=== PATIENT | male | born 1960 | race Caucasian/White ===

== ENCOUNTER 2017-11-19 17:52 | Emergency (ER) | payer OTHER ==
[~2017-11-19] VITALS: Ht 175.3 cm; Wt 86.2 kg
[~2017-11-19 17:52] MED LIST: CEPH500C PO; HYDR-3454 PO
[2017-11-19] MEDS ORDERED: NS IV 1000 ML 1,000 ML IV ONE (18:05)
--- NOTE | 2017-11-19 18:12 | ED GU-Male ---
General Stated Complaint: PAIN IN BACK AND TESTICLES Source: patient, spouse Exam Limitations: no limitations History of Present Illness Date Seen by Provider: Nov 19, 2017 Time Seen by Provider: 18:07 Initial Comments Patient presents to ER with his spouse by private conveyance with a chief complaint of for one month now he's had progressively worsening pain starts in his left back around his kidneys radiates down to his left hip and left testicle. He does not have painful urination, discharge nor has he seen hematuria. He has not taken anything for the pain. He went to urgent care [facility] get some relief and I gave him IM Toradol about 20 minutes prior to arrival which has brought his pain down from an 8 to a 7. He has no history of kidney stones. He said they did a urinalysis and showed red blood cells in the urine. She says this pain is intermittent and does not come on every day. When it does come on fairly severe. He denies any history of trauma. He says his been drinking a lot of water and cranberry juice and says that he will urinate quite a bit and then need to go back to the bathroom and urinate again. He does not feel like his heart emptying his bladder but he is definitely having frequency area Allergies and Home Medications Allergies Coded Allergies: No Known Drug Allergies (Unverified , 12/03/12) Home Medications Cephalexin Monohydrate 500 Mg Capsule, 1 EACH PO TID for 7 Days, Ref 0 (Reported ) Hydrocodone Bit/Acetaminophen 1 Each Tablet, 1-2 EACH PO Q4H, #30 Ref 0 ( Reported) Oxycodone HCl/Acetaminophen 1 Each Tablet, 1-2 EACH PO Q4H PRN for BREAKTHROUGH PAIN, #20 Ref 0 Prescribed by: GILBERTO SZYMANSKI on 11/19/17 129 Constitutional: No chills, No diaphoresis, No fever, No malaise EENTM: no symptoms reported Respiratory: No cough, No short of breath Cardiovascular: No chest pain, No palpitations, No syncope Gastrointestinal: see HPI, abdominal pain, No constipation, No diarrhea, nausea , No vomiting Genitourinary: denies burning, denies discharge, denies dysuria, frequency, flank pain, denies hematuria, denies incontinence, pain, urgency Past Rrcvmzp-Cdkhaf-Ulipzo Hx Patient Social History Alcohol Use: Occasionally Uses Alcohol Beverage of Choice: Beer, Scotch Recreational Drug Use: No Smoking Status: Current Everyday Smoker Type Used: Cigarettes (0.25) Reproductive System Hx Reproductive Disorders: No Physical Exam Vital Signs Vital Sign - Last 12Hours 11/19/17 18:07 Temp 98.0 Pulse 63 Resp 17 B/P (MAP) 170/110 (130) Pulse Ox 96 O2 Delivery Room Air Capillary Refill : General Appearance: WD/WN, mild distress HEENT: PERRL/EOMI, pharynx normal Neck: non-tender, supple, normal inspection Cardiovascular: regular rate, rhythm, no edema Respiratory: normal breath sounds, no respiratory distress, no accessory muscle use Gastrointestinal: normal bowel sounds, soft, no organomegaly, No distended, No guarding, tenderness (RLQ) Back: normal inspection, no vertebral tenderness, CVA tenderness (L) Extremities: no pedal edema, normal capillary refill Neurologic/Psychiatric: alert, normal mood/affect, oriented x 3 Skin: normal color, warm/dry Progress/Results/Core Measures Suspected Sepsis SIRS Temperature: Pulse: Respiratory Rate: Laboratory Tests 11/19/17 18:00: White Blood Count 8.3 Blood Pressure / Mean: Laboratory Tests 11/19/17 18:00: Creatinine 1.08, Platelet Count 266, Total Bilirubin 0.4 Results/Orders Lab Results Laboratory Tests Test 11/19/17 18:00 11/19/17 18:16 Range/Units White Blood Count 8.3 4.3-11.0 10^3/uL Red Blood Count 4.83 4.35-5.85 10^6/uL Hemoglobin 15.1 13.3-17.7 G/DL Hematocrit 43 40-54 % Mean Corpuscular Volume 89 80-99 FL Mean Corpuscular Hemoglobin 31 25-34 PG Mean Corpuscular Hemoglobin Concent 35 32-36 G/DL Red Cell Distribution Width 12.8 10.0-14.5 % Platelet Count 266 130-400 10^3/uL Mean Platelet Volume 10.0 7.4-10.4 FL Neutrophils (%) (Auto) 72 42-75 % Lymphocytes (%) (Auto) 20 12-44 % Monocytes (%) (Auto) 5 0-12 % Eosinophils (%) (Auto) 2 0-10 % Basophils (%) (Auto) 0 0-10 % Neutrophils # (Auto) 6.0 1.8-7.8 X 10^3 Lymphocytes # (Auto) 1.7 1.0-4.0 X 10^3 Monocytes # (Auto) 0.4 0.0-1.0 X 10^3 Eosinophils # (Auto) 0.2 0.0-0.3 10^3/uL Basophils # (Auto) 0.0 0.0-0.1 10^3/uL Sodium Level 139 135-145 MMOL/L Potassium Level 4.1 3.6-5.0 MMOL/L Chloride Level 103 98-107 MMOL/L Carbon Dioxide Level 24 21-32 MMOL/L Anion Gap 12 5-14 MMOL/L Blood Urea Nitrogen 19 H 7-18 MG/DL Creatinine 1.08 0.60-1.30 MG/DL Estimat Glomerular Filtration Rate > 60 BUN/Creatinine Ratio 18 Glucose Level 130 H 70-105 MG/DL Calcium Level 9.2 8.5-10.1 MG/DL Magnesium Level 1.9 1.8-2.4 MG/DL Total Bilirubin 0.4 0.1-1.0 MG/DL Aspartate Amino Transf (AST/SGOT) 25 5-34 U/L Alanine Aminotransferase (ALT/SGPT) 32 0-55 U/L Alkaline Phosphatase 60 40-136 U/L Total Protein 7.0 6.4-8.2 GM/DL Albumin 4.3 3.2-4.5 GM/DL Urine Color YELLOW Urine Clarity CLEAR Urine pH 7 5-9 Urine Specific [place] 1.010 L 1.016-1.022 Urine Protein 1+ H NEGATIVE Urine Glucose (UA) NEGATIVE NEGATIVE Urine Ketones NEGATIVE NEGATIVE Urine Nitrite NEGATIVE NEGATIVE Urine Bilirubin NEGATIVE NEGATIVE Urine Urobilinogen NORMAL NORMAL MG/DL Urine Leukocyte Esterase 1+ H NEGATIVE Urine RBC (Auto) 2+ H NEGATIVE Urine RBC 5-10 H /HPF Urine WBC 5-10 H /HPF Urine Crystals NONE /LPF Urine Bacteria TRACE /HPF Urine Casts NONE /LPF Urine Mucus SMALL H /LPF Urine Culture Indicated YES My Orders Orders - GILBERTO SZYMANSKI Ua Culture If Indicated (11/19/17 17:56) Ct Abd/Pelvis Wo(Kidney Stone) (11/19/17 18:05) Abdomen/Kub 1view (11/19/17 18:05) Saline Lock/Iv-Start (11/19/17 18:05) Cbc With Automated Diff (11/19/17 18:05) Comprehensive Metabolic Panel (11/19/17 18:05) Magnesium (11/19/17 18:05) Ua Culture If Indicated (11/19/17 18:05) Ns Iv 1000 Ml (Sodium Chloride 0.9%) (11/19/17 18:05) Ondansetron Injection (Zofran Injectio (11/19/17 18:15) Fentanyl Injection (Sublimaze Injection (11/19/17 18:15) Urine Culture (11/19/17 18:16) Medications Given in ED Current Medications Medications Dose Ordered Sig/Kylah Route Start Time Stop Time Status Last Admin Dose Admin Fentanyl Citrate 50 mcg ONCE ONCE IVP 11/19/17 18:15 11/19/17 18:16 DC 11/19/17 18:13 50 MCG Ondansetron HCl 4 mg ONCE ONCE IVP 11/19/17 18:15 11/19/17 18:16 DC 11/19/17 18:13 4 MG Sodium Chloride 1,000 ml @ 0 mls/hr Q0M ONCE IV 11/19/17 18:05 11/19/17 18:07 DC 11/19/17 18:13 1,000 MLS/HR Vital Signs/I&O Vital Sign - Last 12Hours 11/19/17 18:07 Temp 98.0 Pulse 63 Resp 17 B/P (MAP) 170/110 (130) Pulse Ox 96 O2 Delivery Room Air Capillary Refill : Progress Note : Time: 18:12 Progress Note Report of hematuria on UA without evidence of infection along with his left flank pain makes a kidney stone most likely. I did go ahead and FOR a CT scan of his abdomen. Given some more pain and nausea medicine. A testicular torsion over the last month seems to be less likely and is also not having any swelling , redness or tenderness of the testicle. Diagnostic Imaging Diagonstic Imaging: CT Plain Films/CT/US/NM/MRI: abdomen, pelvis (w/o) Comments 8 mm in greatest dimension stone in the ureter pelvic junction. [facility] [place], [place] NAME: E[facility] REC#: [id number] PT STATUS: REG ER : 1960 PHYSICIAN: GILBERTO SZYMANSKI MD ADMIT DATE: 11/19/17/ER Draft Date of Exam:11/19/17 CT ABD/PELVIS WO(KIDNEY STONE) PROCEDURE: CT urinary tract, rule out kidney stone. TECHNIQUE: Multiple contiguous axial images were obtained through the abdomen and pelvis without the use of intravenous contrast. INDICATION: Left flank pain. COMPARISON: None available. FINDINGS: Evaluation of the abdominal viscera is mildly limited without contrast. Lower chest: The lung bases are clear. Calcified middle lobe granuloma from old granulomatous disease. No pericardial or pleural effusion. Peritoneum: No free intraperitoneal air or fluid. Liver and biliary system: Unenhanced liver is normal. The gallbladder is normal. No biliary duct dilation. Spleen and Pancreas: Spleen is normal. Unenhanced pancreas is grossly normal. Adrenals: Normal. tract: There is mild left hydronephrosis and hydroureter secondary to a 6 mm partially obstructing stone at the left UVJ. There is an additional punctate 2 mm nonobstructing stone in the upper pole of the left kidney. Punctate nonobstructing right renal stones are also noted. No right-sided ureteral stones. Urinary bladder is decompressed. GI tract: Stomach is decompressed. No bowel obstruction. No pericolonic inflammatory changes. Normal appendix. Sigmoid colon diverticulosis without diverticulitis. Vasculature and Lymph nodes: Normal caliber aorta with scattered calcified plaques. No abdominal or pelvic lymphadenopathy. Musculoskeletal: No concerning osseous lesion. IMPRESSION: 1. Mild left hydronephrosis and hydroureter secondary to a 6 mm partially obstructing stone at the left UVJ. 2. Bilateral nonobstructing punctate renal stones are also present. Dictated on workstation # [id number] Dict: 11/19/17 1840 Trans: 11/19/17 1845 [facility] [id number] Interpreted by: AGUSTIN ESPINOZA MD Electronically signed by: Reviewed: Reviewed by Me Diagonstic Imaging: Xray Plain Films/CT/US/NM/MRI: abdomen (KUB) Reviewed: Reviewed by Me Departure Impression Impression: Primary Impression: Ureteral calculus, left Additional Impression: Urinary tract infection Qualified Codes: N30.01 - Acute cystitis with hematuria Disposition: HOME, SELF-CARE Condition: Stable Departure-Patient Inst. Decision time for Depature: 18:59 Referrals: JACK PARSONS MD (PCP) Primary Care Physician Patient Instructions: Kidney Stones (DC) Add. Discharge Instructions: You have an 8-9 mm stone sitting in the ureter just above the bladder. It is low likelihood that this will pass on its own. However I do encourage use pain meds 1-2 tablets of the Percocet every 4 hours as needed as well as Zofran/ ondansetron every 6 hours as needed for the nausea. Strain your urine see if you can catch the stone for fragments if it breaks up and passes. Tomorrow morning call the urologist Dr. Keane at [phone] and set up an appointment to be seen and have the stone blasted using extracorporeal lithotripsy. 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 Scripts Ondansetron (Ondansetron Odt) 4 Mg Tab.rapdis 4 MG PO Q6H Y for NAUSEA/VOMITING, #8 TAB 0 Refills Prov: GILBERTO SZYMANSKI 11/19/17 Tamsulosin HCl (Flomax) 0.4 Mg Cap 0.4 MG PO HS for 14 Days, #14 CAP 0 Refills Prov: GILEBRTO SZYMANSKI 11/19/17 Cephalexin (Keflex) 500 Mg Capsule 500 MG PO BID for 7 Days, #14 CAP 0 Refills Prov: GILBERTO SZYMANSKI 11/19/17 Oxycodone HCl/Acetaminophen (Percocet 10-325 mg Tablet) 1 Each Tablet 1-2 EACH PO Q4H Y for BREAKTHROUGH PAIN, #20 TAB 0 Refills Prov: GILBERTO SZYMANSKI 11/19/17 Copy Copies To 1: JACK PARSONS MD Copies To 2: DANICA KEANE MD, TITUS J Nov 19, 2017 18:12
[2017-11-19] MEDS ORDERED: fentaNYL INJECTION 100 MCG/2 ML AMP IVP ONE (18:15)
[2017-11-19] MEDS ORDERED: ONDANSETRON 4 MG/2 ML (SDV) Z0FRAN IVP ONE (18:15)
[2017-11-19 18:19] LABS: BASOPHILS % (AUTO) 0 % (0-10); EOSINOPHILS # (AUTO) 0.2 10^3/uL (0.0-0.3); EOSINOPHILS % (AUTO) 2 % (0-10); HEMATOCRIT 43 % (40-54); HEMOGLOBIN 15.1 G/DL (13.3-17.7); LYMPHOCYTES # (AUTO) 1.7 X 10^3 (1.0-4.0); LYMPHOCYTES % (AUTO) 20 % (12-44); MEAN CORPUSCULAR HEMOGLOBIN 31 PG (25-34); MEAN CORPUSCULAR HGB CONC 35 G/DL (32-36); MEAN CORPUSCULAR VOLUME 89 FL (80-99); MONOCYTES # (AUTO) 0.4 X 10^3 (0.0-1.0); MONOCYTES % (AUTO) 5 % (0-12); NEUTROPHILS % (AUTO) 72 % (42-75); PLATELET COUNT 266 10^3/uL (130-400); RED BLOOD COUNT 4.83 10^6/uL (4.35-5.85); RED CELL DISTRIBUTION WIDTH 12.8 % (10.0-14.5); WHITE BLOOD COUNT 8.3 10^3/uL (4.3-11.0)
[2017-11-19 18:31] LABS: BILIRUBIN,URINE NEGATIVE (NEGATIVE); CLARITY,URINE CLEAR; COLOR,URINE YELLOW; GLUCOSE, URINE (UA) NEGATIVE (NEGATIVE); KETONES,URINE NEGATIVE (NEGATIVE); LEUKOCYTE ESTERASE ,URINE 1+ (NEGATIVE); NITRITE,URINE NEGATIVE (NEGATIVE); PH,URINE 7 (5-9); PROTEIN,URINE 1+ (NEGATIVE); UROBILINOGEN,URINE NORMAL (NORMAL)
[2017-11-19 18:40] LABS: BACTERIA,URINE TRACE /HPF
[2017-11-19] MEDS ORDERED: OXYC-202 PO (18:42)
[2017-11-19 18:45] LABS: ALANINE AMINOTRANSFERASE 32 U/L (0-55); ALBUMIN 4.3 GM/DL (3.2-4.5); ALKALINE PHOSPHATASE 60 U/L (40-136); BILIRUBIN,TOTAL 0.4 MG/DL (0.1-1.0); BUN/CREATININE RATIO 18; CALCIUM 9.2 MG/DL (8.5-10.1); CARBON DIOXIDE 24 MMOL/L (21-32); CHLORIDE 103 MMOL/L (98-107); CREATININE SERUM 1.08 MG/DL (0.60-1.30); GFR ESTIMATED > 60; GLUCOSE 130 MG/DL (70-105); MAGNESIUM 1.9 MG/DL (1.8-2.4); POTASSIUM 4.1 MMOL/L (3.6-5.0); SODIUM 139 MMOL/L (135-145)
--- NOTE | 2017-11-19 18:45 | Diagnostic Imaging Report ---
PROCEDURE: CT urinary tract, rule out kidney stone. TECHNIQUE: Multiple contiguous axial images were obtained through the abdomen and pelvis without the use of intravenous contrast. INDICATION: Left flank pain. COMPARISON: None available. FINDINGS: Evaluation of the abdominal viscera is mildly limited without contrast. Lower chest: The lung bases are clear. Calcified middle lobe granuloma from old granulomatous disease. No pericardial or pleural effusion. Peritoneum: No free intraperitoneal air or fluid. Liver and biliary system: Unenhanced liver is normal. The gallbladder is normal. No biliary duct dilation. Spleen and Pancreas: Spleen is normal. Unenhanced pancreas is grossly normal. Adrenals: Normal. tract: There is mild left hydronephrosis and hydroureter secondary to a 6 mm partially obstructing stone at the left UVJ. There is an additional punctate 2 mm nonobstructing stone in the upper pole of the left kidney. Punctate nonobstructing right renal stones are also noted. No right-sided ureteral stones. Urinary bladder is decompressed. GI tract: Stomach is decompressed. No bowel obstruction. No pericolonic inflammatory changes. Normal appendix. Sigmoid colon diverticulosis without diverticulitis. Vasculature and Lymph nodes: Normal caliber aorta with scattered calcified plaques. No abdominal or pelvic lymphadenopathy. Musculoskeletal: No concerning osseous lesion. IMPRESSION: 1. Mild left hydronephrosis and hydroureter secondary to a 6 mm partially obstructing stone at the left UVJ. 2. Bilateral nonobstructing punctate renal stones are also present. Dictated by: Dictated on workstation # [id number]
[2017-11-19] MEDS ORDERED: CEPH-507 PO (19:02)
[2017-11-19] MEDS ORDERED: ONDA4TAB11 PO ×2 (19:02→20:29)
[2017-11-19] MEDS ORDERED: TAMS0.4C98 PO (19:02)
--- NOTE | 2017-11-19 19:16 | Diagnostic Imaging Report ---
INDICATION: Abdominal pain. COMPARISON: CT abdomen and pelvis performed subsequently. TECHNIQUE: KUB. FINDINGS: Nonobstructive bowel gas pattern. No free intraperitoneal air. The 6 mm distal left ureteral stone is present but better characterized on recent CT. Normal regional skeleton. IMPRESSION: 1. Nonobstructive bowel gas pattern. 2. Please see CT report for partially obstructing left ureteral stone. Dictated by: Dictated on workstation # [id number]
[2017-11-19 19:37] VITALS: BP 137/95
== END 2017-11-19 19:14 | disposition home or self-care (01) ==
LOC: EDUNIT# 17:52 → ER 17:54
DX: N20.1 Calculus of ureter (principal); N39.0 Urinary tract infection, site not specified; F17.210 Nicotine dependence, cigarettes, uncomplicated
CPT/HCPCS: 36415; 74018; 74176; 80053; 81000; 83735; 85025; 87077; 87088

== ENCOUNTER → 2017-11-23 | Outpatient (CLI) | payer OTHER ==
[~2017-11-23] MED LIST changes: +CEPH-507 PO; +CIPR-225 PO; +HYDR-3874 PO; +ONDA4TAB11 PO; +OXYC-202 PO; +PHEN-640 PO; +ROPI1TAB2 PO; +TAMS0.4C98 PO
--- NOTE | 2017-11-23 13:09 | Diagnostic Imaging Report ---
INDICATION: Left-sided kidney stones. TIME OF EXAM: 12:58 p.m. Correlation is made with prior study from 11/19/2017. Bowel gas pattern remains nonobstructive. Previously noted calculus at the left UVJ remains in place. Tiny left upper pole renal calculus is unchanged. No new abnormality is seen. IMPRESSION: Stable KUB when compared with examination from four days earlier. Dictated by: Dictated on workstation # [id number]
== END ==
LOC: RAD 12:17
PROVIDERS: ATTEND Urology
DX: N20.2 Calculus of kidney with calculus of ureter (principal)
CPT/HCPCS: 74018

== ENCOUNTER 2017-11-24 05:41 | Outpatient (CLI) | payer OTHER ==
[~2017-11-24] VITALS: Ht 175.3 cm; Wt 86.2 kg
[~2017-11-24 05:41] MED LIST changes: -CIPR-225 PO; -HYDR-3874 PO; -PHEN-640 PO; -ROPI1TAB2 PO
[2017-11-24] MEDS ORDERED: ROPI1TAB2 PO (10:44)
[2017-11-25] MEDS ORDERED: HYDR-3874 PO (10:55)
[2017-11-25] MEDS ORDERED: CIPR-225 PO (10:55)
[2017-11-25] MEDS ORDERED: PHEN-640 PO (10:55)
== END 2017-11-24 10:53 ==
LOC: PREOP 05:41
PROVIDERS: ATTEND Urology
DX: Z01.818 Encounter for other preprocedural examination (principal); N20.1 Calculus of ureter; N20.0 Calculus of kidney

== ENCOUNTER 2017-12-10 17:00 | Outpatient (RCR) | payer OTHER ==
[~2017-12-10 17:00] MED LIST changes: +CIPR-225 PO; +HYDR-3870 PO; +PHEN-640 PO; +ROPI1TAB2 PO
== END 2018-03-10 | disposition home or self-care (01) ==
LOC: LAB 17:00
PROVIDERS: ATTEND Urology
DX: N20.9 Urinary calculus, unspecified (principal)
CPT/HCPCS: 36415; 82140; 82340; 82507; 82570; 83735; 83945; 83986; 84105; 84133; 84300; 84392; 84560

== ENCOUNTER 2019-08-12 08:16 | Outpatient (RCR) | payer OTHER ==
--- NOTE | 2019-08-12 09:00 | Diagnostic Imaging Report ---
INDICATION: Renal stones. Time of exam: 8:27 AM Correlation is made with prior radiographs from 11/25/2017. Single view of the abdomen demonstrates bowel gas pattern to be unremarkable. No definite radiopaque renal calculi are seen. Previously noted left pelvic calcification in the distribution of the distal left ureter on prior study no longer visualized. Pelvic calcifications in the midline may be prostatic. Right pelvic calcification may be a phlebolith. No definite urinary tract calculi are seen. IMPRESSION: No definite radiopaque urinary tract calculi are detected. Dictated by: Dictated on workstation # [id number]
== END 2019-11-10 | disposition home or self-care (01) ==
LOC: RAD 08:16
PROVIDERS: ATTEND Urology
DX: N20.0 Calculus of kidney (principal)
CPT/HCPCS: 74018

== ENCOUNTER → 2019-08-12 | Outpatient (CLI) | payer OTHER ==
[~2019-08-12] MED LIST changes: -OXYC-202 PO; +OXYC1TAB12 PO; -TAMS0.4C98 PO; +TMSL.4C PO
[2019-08-12 09:14] LABS: BUN/CREATININE RATIO 19; CALCIUM 9.2 MG/DL (8.5-10.1); CARBON DIOXIDE 26 MMOL/L (21-32); CHLORIDE 104 MMOL/L (98-107); GFR ESTIMATED > 60; GLUCOSE 119 MG/DL (70-105); PHOSPHORUS 2.6 MG/DL (2.3-4.7); SODIUM 138 MMOL/L (135-145); URIC ACID 5.7 MG/DL (2.6-7.2)
== END ==
LOC: LAB 08:13
PROVIDERS: ATTEND Nurse Practitioner Family
DX: Z01.89 Encounter for other specified special examinations (principal)
CPT/HCPCS: 36415; 80048; 84100; 84550

== ENCOUNTER → 2022-10-31 | Outpatient (CLI) | payer BC, OTHER ==
[~2022-10-31] MED LIST changes: +CATHETER FLUSH 10 ML SYR IVP PRN; +ROPI1TAB PO; -ROPI1TAB2 PO
[2022-10-31 08:15] VITALS: BP 141/99
--- NOTE | 2022-10-31 10:44 | NUCLEAR STRESS TEST ---
TREADMILL NUCLEAR STRESS TEST Date of procedure: 10/31/2022. Primary care provider: Parag Saleh MD. Admitting physician: Parag Saleh MD. INDICATION: Dyspnea on exertion and abnormal electrocardiogram. BASELINE ELECTROCARDIOGRAM: Sinus rhythm with low voltage in the precordial leads and nonspecific intraventricular conduction delay. STRESS TEST PROCEDURE: This is the nuclear portion only for a treadmill nuclear stress test. Please see separate report for treadmill finding. NUCLEAR PROCEDURE: The patient was administered 10.9 mCi of intravenous technetium 99m Tetrofosmin at rest for the rest images. The patient was subsequently administered 31.9 mCi of intravenous technetium 99 M Tetrofosmin at peak stress for the stress images. Following an appropriate wait after each injection, imaging was obtained. The images were subsequently processed and reformatted in the usual views. Gated imaging was obtained. The image quality was adequate with a mild degree of gastrointestinal attenuation artifact. CT attenuation correction was used as a adjunct to standard imaging. Both the corrected and uncorrected images were reviewed for interpretation. NUCLEAR RESULTS: There was normal myocardial perfusion in all segments without e vidence of infarction or ischemia. There was normal left ventricular chamber size with an end-diastolic volume of 53 mL and an end-systolic volume of 17 mL. There was no evidence of transient ischemic dilatation. The TID ratio was 0.96. There was normal wall motion in all segments with a calculated ejection fraction of 69%. IMPRESSION: 1. This is the nuclear interpretation only for a treadmill nuclear stress test. Please see separate report for treadmill findings. 2. There was normal myocardial perfusion in all segments without evidence of infarction or ischemia. 3. There was normal wall motion in all segments with a calculated ejection fraction of 69%. Certain portions of this document may have been dictated utilizing voice recognition technology. Inherent to this technology, typographical and grammatical errors may exist. As much as I am diligent to identify and correct these mistakes, some errors may remain in the document. ELLIS MARTINEZ JR, MD Oct 31, 2022 10:44
--- NOTE | 2022-10-31 11:46 | Diagnostic Imaging Report ---
INDICATION: Dyspnea on exertion. EXAMINATION: PA and lateral chest. FINDINGS: Heart size and pulmonary vascularity are normal. Lungs are clear. There are no effusions or pneumothoraces. IMPRESSION: Negative chest. Dictated by: Dictated on workstation # [id number]
== END ==
LOC: CARD 07:00
PROVIDERS: ATTEND Internal Medicine
DX: R06.09 Other forms of dyspnea (principal); M50.33 Other cervical disc degeneration, cervicothoracic region
CPT/HCPCS: 71046; 78452; 93017; A9502